=== PATIENT | male | born 2000 | race Two or more races ===

== ENCOUNTER 2021-03-23 16:09 | Emergency (ER) | payer MEDICAID ==
[~2021-03-23] VITALS: Ht 175.3 cm; Wt 72.6 kg
[2021-03-23 16:37] VITALS: BP 109/78
== END 2021-03-23 17:17 | disposition home or self-care (01) ==
LOC: ER 16:09
DX: S16.1XXA Strain of muscle, fascia and tendon at neck level, initial encounter (principal); S80.02XA Contusion of left knee, initial encounter; V43.52XA Car driver injured in collision with other type car in traffic accident, initial encounter; Y93.89 Activity, other specified; Y92.410 Unspecified street and highway as the place of occurrence of the external cause; Y99.8 Other external cause status
CPT/HCPCS: 73562